=== PATIENT | female | born 1980 | race Caucasian/White ===

== ENCOUNTER 2019-10-28 23:06 | Inpatient (IN) | payer BC ==
[~2019-10-28] VITALS: Ht 152.4 cm; Wt 97.9 kg
[2019-10-28] MEDS ORDERED: ACET325C5 PO (23:46)
[2019-10-28] MEDS ORDERED: ALBU83IN INH (23:46)
[2019-10-28] MEDS ORDERED: VALA500T5 PO (23:46)
[2019-10-28] MEDS ORDERED: ZOLP5TAB PO (23:46)
[2019-10-28] MEDS ORDERED: SERT-141 PO (23:46)
[2019-10-28] MEDS ORDERED: CVS50CAP PO (23:46)
[2019-10-29] MEDS ORDERED: MAALOX 30 ML SUSP *UDC PO PRN (00:30)
[2019-10-29] MEDS ORDERED: ACETAMINOPHEN TAB 650MG DOSE (2X325MG) PO PRN (00:30)
[2019-10-29] MEDS ORDERED: MOM 30ML SUSPENSION UDC PO PRN (00:30)
[2019-10-29] MEDS ORDERED: traZODone 50 MG TAB PO PRN (00:30)
[2019-10-29] MEDS ORDERED: ACET1TAB55 PO (00:48)
[2019-10-29 01:27] VITALS: BP 118/76
[2019-10-29] MEDS ORDERED: ALBUTEROL SULFATE 2.5 MG/0.5 ML INH NEB SOLN INH PRN (03:30)
[2019-10-29] MEDS ORDERED: ACETAMINOPHEN 500 MG TAB PO ONE (10:00)
[2019-10-29] MEDS ORDERED: IBUPROFEN 600 MG TAB PO ONE (10:00)
[2019-10-29 10:20] LABS: BASO # 0.1 10^3/uL (0.0-0.2); BASO % 0.7 % (0.0-1.0); EOS # 0.1 10^3/uL (0.0-0.5); EOS % 1.1 % (0.0-3.0); HEMATOCRIT 47.4 % (36.0-47.0); HEMOGLOBIN 15.3 g/dl (12.0-15.5); LYMPH # 1.6 10^3/uL (1.5-5.0); LYMPH % 16.3 % (24.0-44.0); MEAN CORPUSCULAR HEMOGLOBIN 28.7 pg (27.0-33.0); MEAN CORPUSCULAR HGB CONC 32.3 g/dl (32.0-36.5); MEAN CORPUSCULAR VOLUME 88.9 fl (80.0-96.0); MONO # 0.6 10^3/uL (0.0-0.8); MONO % 6.4 % (0.0-5.0); NEUTROPHILS # 7.4 10^3/uL (1.5-8.5); NEUTROPHILS % 75.2 % (36.0-66.0); PLATELET COUNT, AUTOMATED 354 10^3/uL (150-450); RED BLOOD COUNT 5.33 10^6/uL (4.00-5.40); WHITE BLOOD COUNT 9.8 10^3/uL (4.0-10.0)
[2019-10-29] MEDS ORDERED: VENLAFAXINE **XR** 75MG CAPSULE PO ONE (10:30)
--- NOTE | 2019-10-29 10:49 | MHHPEPDOC ---
General Date Of Admission: Oct 28, 2019 Legal Status: 9.39 Chief Complaint "I took pills." History of Present Illness HISTORY OF THE PRESENT ILLNESS: Patient is a 39 -year-old , female, wit h a history of depression and no previous psych admissions who was transferred from [facility] after taking an OD of tylenol, hydrocodone, pyridium, ambien, and zoloft due to thoughts of depression at the time she took them pm 10/27/19. Pt stated in the ED that after she took the OD she feel asleep and di not wake until 12:30 the next and day and text her that she had taken an OD of pills so he took her to [facility]. Pt endorsed triggers of her oldest daughter hating her, having no relationship with her mother (who her oldest daughter lives with), and her friends all moving away leaving her with little support per ED. Also stated that her is not supportive. Per ED, when seen in U she denied symptoms of depression, SI/HI, hallucinations, delusions. Psychiatric Review of Systems Depression (2 or more weeks): depressed mood, suicidal thoughts Luyc (4 or more days of): denies Psychosis: denies PTSD: denies Anxiety: stressor related anxiety Anxiety/ 6 months or more of: difficulty concentrating, other (impulsivity) Past Psychiatric History Previous Psychiatric Diagnosis: depression Previous Psychiatric Admissions: denies Suicide Attempts: denies Psychiatric Follow-up: [facility]. Psychiatric medications: zoloft 100mg daily (not helpful even with recent increase 2wks ago), ambien Past Medical History Medical Problems genital herpes Head Injury: No Seizures: No Hospitalizations: No Surgeries: Yes (cardiac ablation, cholecystectomy, partial hysterectomy) Family Medical/Psychiatric HX Medical Problems noncontributory Psychiatric Disorders: No Addiction: No Suicide Attemps/Completions: No Addiction History other (utox pos opiates, hydrocodone taken with OD (had left over Rx and no longer has any more)) Social History Childhood: Born and Raised in [place], 2 parent home, good childhood, poor relationship with her mother Abuse/Trauma:denies Current Living Situation: lives with and 2 younger children 12 and 13 in [place] Education: high school grad, college edu in child development Employment: Teacher's aid Social Support: limited due to friends all moving away and states not very supportive Legal: denies Marital: , 3 children Mental Status Examination General Appearance: unkempt, appears stated age, hospital scubs/clothing Build: overweight Demeanor: average Eye Contact: average Activity: average Behavior: cooperative, other (remorse for recent OD) Speech: clear, spontaneous, normal volume, reg/rate,rhythm,volume Mood: euthymic Mood "fine" Affect: full, congruent Thought Process: logical/linear, intact, other (remorse for recent OD, impulsivity) Thought Content (Delusions): none reported, denies SI, HI, AVH Thought Content (Other): none reported, appropriate Thought Content (Aggressive): none reported Perception (Hallucinations): none reported Perception (Other): none reported Cognition (Impairment of): none reported Cognition(Intelligence Est.): average Oriented: Awake, Alert, Oriented times three Insight: poor Judgment: Poor Psychosis: Denies Diagnoses Adjustment d/o with depression, anxiety, disturbance of conduct A-FIB/CHADSVASC A-FIB History Current/History of A-Fib/PAF?: No Assessment Pt seen during treatment team and states she here b/c she was feeling depressed on 10/27 b/c "my oldest daughter hates me and does want any thing to do with me... lives with my mother who I don't like or get alone with" so she impulsively took "a bunch of pills" then feel asleep and woke up feeling fine and no longer depressed. States that she regrets her OD and doesn't plan on joshua r doing it again although her affect appears like she has no remorse for her OD or the seriousness of it as she did take tylenol and hydrocodone. Educated on the risks associated with an OD of tylenol. She states she was recently increased on her outpatient zoloft to 100mg daily for depression but does not feel the medication is beneficial to her at all. She's agreeable to discontinuing it and starting effexor xr for mood, risks/benefits discussed. Due to recent OD on ambien will d/c and provide trazodone prn insomnia which she is ok with. C/O of stomach upset when taking advil so with prescribe protonix to prevent. Denies SI/HI, hallucinations, delusions. Feels safe here. Initial Treatment Plan 1. Patient was admitted on a [9.39] status. 2. Complete history was obtained. 3. With patients permission, family will be contacted and database will be expanded. 4. Patients medication regimen will be reviewed and changed accordingly. 5. Patient will be provided with protected environment. 6. Patient will be treated with individual, group, and milieu therapies. 7. Patient will receive supportive psych-education. 8. Discharge planning will commence immediately. 9. Outpatient follow-up treatment will be strongly recommended. 10. The initial treatment plan will focus initially on: * Depression. * Risk for suicide. 11. d/c jillian and jamari, start effexor xr 75mg daily, trazodone 50mg qhs prn insomnia, protonix 20mg daily ESTIMATED LENGTH OF STAY: 5-7 DAYS. TIME SPENT COUNSELING AND COORDINATING INITIAL CARE: 60 minutes. Vital Signs Vital Signs Date Time Temp Pulse Resp B/P (MAP) Pulse Ox O2 Delivery O2 Flow Rate FiO2 10/29/19 01:27 97.6 87 18 118/76 (90) Room Air 10/28/19 23:36 98 Laboratory Data 24H Labs Laboratory Tests 2 10/29/19 10:03: Immature Granulocyte % (Auto) 0.3, Neutrophils (%) (Auto) 75.2H, Lymphocytes (%) (Auto) 16.3L, Monocytes (%) (Auto) 6.4H, Eosinophils (%) (Auto) 1.1, Basophils (%) (Auto) 0.7, Neutrophils # (Auto) 7.4, Lymphocytes # (Auto) 1.6, Monocytes # (Auto) 0.6, Eosinophils # (Auto) 0.1, Basophils # (Auto) 0.1, Nucleated Red Blood Cells % (auto) 0.0 CBC/BMP Laboratory Tests 10/29/19 10:03 Medications Scheduled Sertraline Hcl (Sertraline HCl) 50 Mg Tablet, 50 MG PO QHS, (Reported) Valacyclovir HCl (Valacyclovir) 500 Mg Tablet, 500 MG PO QHS, (Reported) Zolpidem Tartrate (Zolpidem Tartrate) 5 Mg Tablet, 5 MG PO QHS, (Reported) Scheduled PRN Acetaminophen (Acetaminophen) 325 Mg Tablet, 650 MG PO Q4-6H PRN for PAIN, (Reported) Albuterol Sulf (Albuterol Sulfate) 2.5 Mg/3 Ml Vial.neb, 2.5 MG INH for SHORTNESS OF BREATH, (Reported) Allergies Coded Allergies: NSAIDS (Non-Steroidal Anti-Inflamma (Verified Allergy, Mild, STOMACH UPSET, 10/29/19) Pt. states she has intolerance to them. Stomach upset. LILY SOLIS DO Oct 29, 2019 10:49 am
[2019-10-29 10:59] LABS: ALBUMIN 3.8 GM/DL (3.2-5.2); ALT/SGPT 33 U/L (12-78); BILIRUBIN,TOTAL 0.4 MG/DL (0.2-1.0); BLOOD UREA NITROGEN 14 MG/DL (7-18); CALCIUM LEVEL 9.3 MG/DL (8.5-10.1); CARBON DIOXIDE LEVEL 28 MEQ/L (21-32); CHLORIDE LEVEL 104 MEQ/L (98-107); CREATININE FOR GFR 0.97 MG/DL (0.55-1.30); GLOMERULAR FILTRATION RATE > 60.0 (>60); GLUCOSE, FASTING 153 MG/DL (70-100); POTASSIUM SERUM 3.9 MEQ/L (3.5-5.1); SODIUM LEVEL 139 MEQ/L (136-145); TOTAL PROTEIN 7.8 GM/DL (6.4-8.2)
[2019-10-29] MEDS ORDERED: PANTOPRAZOLE 20 MG TAB PO ONE (12:00)
[2019-10-29] MEDS: ANALGESIC BALM CRM 120 GM TOP SCH ×3 (12:14→20:59)
--- NOTE | 2019-10-29 12:54 | HPE ---
DATE OF ADMISSION: 10/29/2019 Patient is admitted to the psychiatric unit due to severe depression. Currently complains of headache and bilateral knee pain. She describes the pain in bilateral knees as achy, worse when she walks around. Usually takes Tylenol at home. Describes a headache that is prefrontal. Patient has no radiation. She does have a history of migraines, but this does not feel like it is due to migraines according to the patient. There is no aura, upper or lower extremity weakness. Patient has no fevers, chills, neck rigidity. No ice pick like pain behind the eyes. No radiation of the pain. Rated at 6/10, thought to be secondary to sleep deprivation. "I didn't sleep much yesterday." Denies any changes in vision diplopia. PAST MEDICAL HISTORY: Patient has had a supraventricular tachycardia (SVT) with ablation years ago, history if migraines. PAST SURGICAL HISTORY: 1. Cardiac ablation. 2. Cholecystectomy. 3. Two vaginal deliveries. SOCIAL HISTORY: Patient is a vocational aide. Denies cigarette or alcohol use. Lives with her , two children, and a dog. FAMILY HISTORY: Mother in her 70s with Bean's disease, thyroid, diabetes, and obstructive sleep apnea. One brother, age 43, with obstructive sleep apnea. Father in his 70s with gout and hypertension. A half-sister, unknown medical problems. HOSPITAL MEDICATIONS: - acetaminophen 650 every 6 as needed - albuterol 2.5 every 4 as needed - Mylanta 30 mL every 4 as needed - influenza at discharge - milk of magnesia 30 daily - sertraline 50 at bedtime - trazodone 50 at bedtime as needed - Valtrex 500 at bedtime - Ambien 5 mg at bedtime REVIEW OF SYSTEMS: Per history of present illness (HPI). A 12-point system otherwise negative. PHYSICAL EXAMINATION: Temperature 97.6, pulse 87, respiratory rate 18, blood pressure 118/76, 98% on room air. GENERAL: Patient is awake, alert, oriented times three. Anicteric sclerae. No jaundice. No use of respiratory accessory muscles. Moist mucous membranes. No jugular venous distention (JVD), thyromegaly, or clinic. Patient has negative Brudzinski and Kernig sign. No neck rigidity. Neck has full range of motion. LUNGS: Clear to auscultation. No wheezes, rales, or rhonchi. HEART: S1, S2, sinus rhythm. No murmurs, rubs, or gallops. ABDOMEN: Soft, nontender, nondistended, obese abdomen. Positive bowel sounds times four quadrants. No hepatosplenomegaly. EXTREMITIES: No cyanosis, clubbing, pitting edema. Patient has no joint effusion, bilateral knees. LABORATORY DATA: None. ASSESSMENT AND PLAN: A 39-year-old female with a history of cardiac ablation due to supraventricular tachycardia (SVT), chronic migraines but has been well controlled lately, history of cholecystectomy, vaginal deliveries. Complains of a headache, which is not typical of her migraines, and bilateral knee pain, requesting Ezequiel-Jordan for her knees and Tylenol for her headache. IMPRESSION: 1. Headache, nontypical for migraine symptoms. Tylenol twice a day and as needed. 2. History of SVT with cardiac ablation. 3. Depression. Psychiatric management. 4. B/L knee pain most likely OA. PRN pain meds. MTDD
[2019-10-29 16:41] VITALS: BP 120/72
[2019-10-29] MEDS: valACYclovir HCL 500 MG TAB PO SCH (20:59)
[2019-10-29] MEDS ORDERED: SERTRALINE HCL 50 MG TAB PO SCH (21:00)
[2019-10-29] MEDS ORDERED: zolPIDEM TARTRATE 5 MG TAB PO SCH (21:00)
[2019-10-30 05:48] VITALS: BP 118/63
[2019-10-30] MEDS ORDERED: INFLUENZA QUADRIVALENT PF VACCINE 0.5ML SYRINGE (90686) IM ONE (09:00)
[2019-10-30] MEDS: VENLAFAXINE **XR** 75MG CAPSULE PO SCH (09:21)
[2019-10-30] MEDS: ANALGESIC BALM CRM 120 GM TOP SCH ×4 (09:21→21:18)
[2019-10-30] MEDS: PANTOPRAZOLE 20 MG TAB PO SCH (09:21)
--- NOTE | 2019-10-30 11:35 | MHIPNPDOC ---
[facility] Progress Note Progress Note Inpatient Progress Note Santa Goyal MRN: N/A Date of : N/A Date of Service: 10/30/2019 History of Present Illness The patient a 39-year-old woman with a history of depression and no previous psych admissions, is transferred from [facility] after taking OD of Tylenol, hydrocodone, Pyridium, Ambien and Zoloft due to thoughts of depression at the time. The patient states that she had overdosed and then awok en the next day. She stated that she told her and was brought in for evaluation. Interval History The patient is met with today. She reports her depression is improving and she is feeling much improved. The patient stated that the start of the Effexor and trazodone was quite helpful for her and that she felt that her mood, sleep and appetite had improved. She reported that she has been attending groups, feeling better and is looking forward to potential discharge on Friday. No major behavioral problems. Nursing staff have no significant concerns raised. Review Of Systems General: Denies fever or appetite changes Cardiovascular: Denies Chest pain or palpations GI: Denies Nausea, vomiting, or bowel changes Respiratory: Denies shortness of breath or cough Neuro: Denies dizziness, tremors Derm: Denies any rashes or pruritus : Denies any dysuria or urinary problems MSK: Denies any muscle tightness or stiffness HEENT: Denies any vision changes or headaches Heme/Lymph: denies any bruising or bleeding Endo: denies any cold/heat intolerance or water intake changes Psychotherapy None on this visit. Vital Signs Reviewed. Mental Status Examination General: Well dressed with good hygiene Speech: Spontaneous and fluid Thought processes: Linear and logical MSK: Smooth and coordinated gait, no signs of tremors or involuntary orofacial movements Thought content: Future orientated Abstract reasoning, and computation: Intact Description of associations: Intact Description of abnormal or psychotic thoughts: Denies any suicidal or homicidal ideation. Denies any auditory or visual hallucinations. Does not appear to be responding to internal stimuli. Does not appear to be endorsing any bizarre or paranoid ideation. Judgment: fair Insight: fair Orientation: Alert and orientated 3 Cognition: Grossly normal Recent and remote memory: Intact Attention span and concentration: Intact Fund of knowledge: Adequate Mood: "okay" Affect: Euthymic with a full range Diagnoses Adjustment disorder with disruption of mood and conduct. Assessment and Plan Adjustment disorder: Continue Effexor 75 mg daily. Disposition The patient will need a further inpatient admission in order to a plan for a safe discharge on Friday. Time Spent 15 minutes [id number]. Friday Vital Signs Vital Signs Date Time Temp Pulse Resp B/P (MAP) Pulse Ox O2 Delivery O2 Flow Rate FiO2 10/30/19 05:48 98.5 95 18 118/63 (81) 10/29/19 01:27 Room Air 10/28/19 23:36 98 Current Medications Current Medications Medications (Trade) Dose Ordered Sig/Keya Route PRN Reason Start Time Stop Time Status Last Admin Dose Admin Acetaminophen (Tylenol Tab) 650 mg Q6HP PRN PO HEADACHE or DISCOMFORT 10/29/19 00:30 10/29/19 10:33 DC 10/29/19 02:26 Al Hydrox/Mg Hydrox/Simethicone (Mylanta) 30 ml Q4HP PRN PO HEARTBURN/INDIGESTION 10/29/19 00:30 Albuterol Sulfate (Proventil Neb) 2.5 mg Q4HP PRN INH SHORTNESS OF BREATH 10/29/19 03:30 Home Med (Med Rec Complete!) ASDIRECTED XX 10/29/19 01:00 10/29/19 00:59 DC Ibuprofen (Advil) 400 mg Q6HP PRN PO HEADACHE/PAIN 10/29/19 10:00 Magnesium Hydroxide (Milk Of Magnesia) 30 ml DAILYPRN PRN PO CONSTIPATION 10/29/19 00:30 Menthol/Methyl Salicylate (Bengay Cream) bl knee joints-affected area QID TOP 10/29/19 13:00 10/30/19 09:21 Pantoprazole Sodium (Protonix) 20 mg DAILY PO 10/30/19 09:00 10/30/19 09:21 Sertraline HCl (Zoloft) 50 mg QHS PO 10/29/19 21:00 Cancel Trazodone HCl (Desyrel) 50 mg QHSP PRN PO INSOMNIA 10/29/19 00:30 Valacyclovir HCl (Valtrex) 500 mg QHS PO 10/29/19 21:00 10/29/19 20:59 Venlafaxine HCl (Effexor Xr) 75 mg DAILY PO 10/30/19 09:00 10/30/19 09:21 Zolpidem Tartrate (Ambien) 5 mg QHS PO 10/29/19 21:00 Cancel Allergies Coded Allergies: NSAIDS (Non-Steroidal Anti-Inflamma (Verified Allergy, Mild, STOMACH UPSET, 10/29/19) Pt. states she has intolerance to them. Stomach upset. AMANDA SONG DO Oct 30, 2019 11:35
[2019-10-30 16:17] VITALS: BP 122/65
[2019-10-30] MEDS: IBUPROFEN 400 MG TAB PO PRN (18:04)
[2019-10-30] MEDS: valACYclovir HCL 500 MG TAB PO SCH (21:17)
[2019-10-31 06:03] VITALS: BP 105/62
[2019-10-31] MEDS: IBUPROFEN 400 MG TAB PO PRN ×2 (07:43→21:38)
[2019-10-31] MEDS: VENLAFAXINE **XR** 75MG CAPSULE PO SCH (08:46)
[2019-10-31] MEDS: PANTOPRAZOLE 20 MG TAB PO SCH (08:48)
[2019-10-31] MEDS: ANALGESIC BALM CRM 120 GM TOP SCH ×4 (08:48→21:40)
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
[2019-10-31 15:38] VITALS: BP 123/77
[2019-10-31] MEDS: valACYclovir HCL 500 MG TAB PO SCH (21:37)
[2019-11-01 06:24] VITALS: BP 135/83
[2019-11-01] MEDS: PANTOPRAZOLE 20 MG TAB PO SCH (08:25)
[2019-11-01] MEDS: ANALGESIC BALM CRM 120 GM TOP SCH (08:25)
[2019-11-01] MEDS: VENLAFAXINE **XR** 75MG CAPSULE PO SCH (08:25)
[2019-11-01] MEDS ORDERED: TRAZ-252 PO (09:24)
[2019-11-01] MEDS ORDERED: VENL75CA47 PO (09:24)
--- NOTE | 2019-11-01 09:25 | MHDSPDOC ---
[facility] Discharge Summary Discharge Summary DATE OF ADMISSION: Oct 29, 2019 at 12:26 am DATE OF DISCHARGE: Nov 01, 2019 DISCHARGE DIAGNOSES: Adjustment d/o with depression, anxiety, disturbance of conduct REASON FOR ADMISSION: Patient is a 39 -year-old , female, with a history of depression and no previous psych admissions who was transferred from [facility] after taking an OD of tylenol, hydrocodone, pyridium, ambien, and zoloft due to thoughts of depression at the time she took them pm 10/27/19. Pt stated in the ED that after she took the OD she feel asleep and di not wake until 12:30 the next and day and text her that she had taken an OD of pills so he took her to [facility]. Pt endorsed triggers of her oldest daughter hating her, having no relationship with her mother (who her oldest daughter lives with), and her friends all moving away leaving her with little support per ED. Also stated that her is not supportive. Per ED, when seen in U she denied symptoms of depression, SI/HI, hallucinations, delusions. Pt seen during treatment team and states she here b/c she was feeling depressed on 10/27 b/c "my oldest daughter hates me and does want any thing to do with me... lives with my mother who I don't like or get alone with" so she impulsively took "a bunch of pills" then feel asleep and woke up feeling fine and no longer depressed. States that she regrets her OD and doesn't plan on ever doing it again although her affect appears like she has no remorse for her OD or the seriousness of it as she did take tylenol and hydrocodone. Educated on the risks associated with an OD of tylenol. She states she was recently increased on her outpatient zoloft to 100mg daily for depression but does not feel the medication is beneficial to her at all. She's agreeable to discontinuing it and starting effexor xr for mood, risks/benefits discussed. Due to recent OD on ambien will d/c and provide trazodone prn insomnia which she is ok with. C/O of stomach upset when taking advil so with prescribe protonix to prevent. Denies SI/HI, hallucinations, delusions. Feels safe here. CONSULTANTS INVOLVED: none TREATMENT AND PROGRESS ON THE UNIT : Pt was admitted to [facility], seen for psychiatric assessment and her outpatient paxil was discontinued as she did not like it. She was started on effexor xr 75mg daily for mood. She was provided trazodone 50mg qhs prn insomnia. Pt found her medications beneficial and tolerated them well. She attended groups daily during her stay and found very beneficial. Her symptoms improved with treatment. On day of discharge she denied depression, anxiety, insomnia, SI/HI, hallucinations, delusions. She was discharged home with follow-up at [facility]. She felt safe for discharge. DISCHARGE ASSESSMENT: Pt seen and states that her mood is good and she's looking forward to going home today and being with her kids as it's a snow day for her kids today. States she slept well last night. Feels she is tolerating her medications and they're beneficial. She appears bright and euthymic. Continues to regret her OD and states she plans to never do again. She is attending gr oups and finding them helpful. She denies depression, anxiety, insomnia, SI/HI, hallucinations, delusions. Pt feels safe to go home today. MENTAL STATUS EXAMINATION ON DISCHARGE: General Appearance: clean, appears stated age, own clothing Build: overweight Demeanor: average Eye Contact: average Activity: average Behavior: cooperative Speech: clear, spontaneous, normal volume, reg/rate,rhythm,volume Mood: euthymic Mood "great" Affect: full, congruent Thought Process: logical/linear, intact Thought Content (Delusions): none reported, denies SI, HI, AVH Thought Content (Other): none reported, appropriate Thought Content (Aggressive): none reported Perception (Hallucinations): none reported Perception (Other): none reported Cognition (Impairment of): none reported Cognition(Intelligence Est.): average Oriented: Awake, Alert, Oriented times three Insight: good Judgment: good Psychosis: Denies MEDICATIONS ON DISCHARGE: effexor xr 75mg daily trazodone 50mg qhs prn insomnia protonix 20mg daily PLAN/FOLLOWUP ARRANGEMENTS: D/c home with follow-up at [facility]. The amount of time spent in the coordination of care for this patient was approximately 30 minutes. Vital Signs/I&Os Vital Signs Date Time Temp Pulse Resp B/P (MAP) Pulse Ox O2 Delivery O2 Flow Rate FiO2 11/01/19 06:24 98.2 85 16 135/83 (100) Room Air 10/28/19 23:36 98 Medications Scheduled Sertraline Hcl (Sertraline HCl) 50 Mg Tablet, 50 MG PO QHS, (Reported) Valacyclovir HCl (Valacyclovir) 500 Mg Tablet, 500 MG PO QHS, (Reported) Zolpidem Tartrate (Zolpidem Tartrate) 5 Mg Tablet, 5 MG PO QHS, (Reported) Scheduled PRN Acetaminophen (Acetaminophen) 325 Mg Tablet, 650 MG PO Q4-6H PRN for PAIN, (Reported) Albuterol Sulf (Albuterol Sulfate) 2.5 Mg/3 Ml Vial.neb, 2.5 MG INH for SHORTNESS OF BREATH, (Reported) Allergies Coded Allergies: NSAIDS (Non-Steroidal Anti-Inflamma (Verified Allergy, Mild, STOMACH UPSET, 10/29/19) Pt. states she has intolerance to them. Stomach upset. LILY SOLIS DO Nov 01, 2019 9:25 am
== END 2019-11-01 11:15 | disposition home or self-care (01) | DRG 755 ==
LOC: M ED 23:06 → M ED INP 10-29 00:26 → M PSY 10-29 01:20
PROVIDERS: ADMIT Psychiatry & Neurology Addiction Medicine; ATTEND Psychiatry & Neurology Psychiatry
DX: F43.23 Adjustment disorder with mixed anxiety and depressed mood (principal); F43.24 Adjustment disorder with disturbance of conduct; R51 Headache; M17.0 Bilateral primary osteoarthritis of knee